=== PATIENT | male | born 1975 | race Caucasian/White ===

== ENCOUNTER → 2020-07-20 11:09 | Outpatient (BNVA) | payer SELFPAY | PROVIDERS: Family Provider Family Medicine; Referring Provider Nurse Practitioner Family; Visit Provider Orthopaedic Surgery | DX: D16.02 Benign neoplasm of scapula and long bones of left upper limb (principal); M25.512 Pain in left shoulder | CPT/HCPCS: 73030 ==

== ENCOUNTER 2020-09-18 15:53 | Outpatient (CLI) | payer SELFPAY ==
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
== END 2020-09-18 15:54 | disposition home or self-care (01) ==
PROVIDERS: Visit Provider Orthopaedic Surgery
DX: S43.50XA Sprain of unspecified acromioclavicular joint, initial encounter (principal); X58.XXXA Exposure to other specified factors, initial encounter
CPT/HCPCS: 73221